=== PATIENT | female | born 1965 | race Caucasian/White ===

== ENCOUNTER 2021-10-08 13:11 | Outpatient (CLI) | payer MEDICARE, MEDICAID | END 2021-10-08 23:59 | disposition home or self-care (01) | LOC: RAD 13:11 | DX: R13.12 Dysphagia, oropharyngeal phase (principal); K21.9 Gastro-esophageal reflux disease without esophagitis; Z79.899 Other long term (current) drug therapy | CPT/HCPCS: 74230 ==